=== PATIENT | male | born 1970 | race Caucasian/White ===

== ENCOUNTER 2018-07-21 13:23 | Emergency (ER) | payer OTHER ==
[~2018-07-21] VITALS: Ht 177.8 cm; Wt 129.3 kg
[~2018-07-21 13:23] MED LIST: ALBUAER3 IN
[2018-07-21 13:43] VITALS: BP 141/78
== END 2018-07-21 22:15 | disposition left against medical advice (07) ==
LOC: ER 13:36
DX: K62.89 Other specified diseases of anus and rectum (principal); Z53.21 Procedure and treatment not carried out due to patient leaving prior to being seen by health care provider

== ENCOUNTER 2018-07-22 10:23 | Inpatient (IN) | payer OTHER ==
[~2018-07-22] VITALS: Ht 177.8 cm; Wt 129.3 kg
[2018-07-22 12:08] LABS: Albumin 3.9 g/dL (3.4-5.0); Calcium 8.6 mg/dL (8.5-10.1); Hemoglobin 16.6 g/dL (13.5-17.5); Monocytes # (auto) 0.5 uL; Potassium 3.7 mmol/L (3.5-5.1); Red Cell Distribution Width 12.9 % (11.8-14.3)
[2018-07-22 12:10] LABS: Basophils # (auto) 0 uL; Basophils % (auto) 0.4 % (0.0-2.0); Eosinophils # (auto) 0.1 uL; Eosinophils % (auto) 1.8 % (0.0-7.0); Hematocrit 47.3 % (41.0-53.0); Lymphocytes # (auto) 2.9 uL; Lymphocytes % (auto) 41.9 % (10.0-50.0); Mean Corpuscular Hemoglobin 34.2 pg (28.0-32.0); Mean Corpuscular Volume 97.7 fL (80.0-100.0); Monocytes % (auto) 7.4 % (0.0-12.0); Neutrophils # (auto) 3.3 uL; Neutrophils % (auto) 48.5 % (37.0-80.0); Nucleated Red Blood Cells % 0.2 %; Platelet Count (auto) 194 10^3/uL (140-450); Red Blood Cells 4.84 10^6/uL (4.5-5.90); White Blood Cell 6.8 10^3/uL (4.4-10.8)
[2018-07-22 12:12] LABS: BUN/Creatinine Ratio 12.2; Bilirubin, Total 0.6 mg/dL (0.2-1.0); Total Protein 7.8 g/dL (6.4-8.2)
[2018-07-22] MEDS ORDERED: cefTRIAXone 1GM/50ML D5W 50 ML IV ONE (16:15)
[2018-07-22] MEDS ORDERED: VANCOMYCIN 1GM/250ML 250 ML IV ONE (16:15)
[2018-07-22] MEDS ORDERED: IPRATROPIUM BROM 0.5 MG/2.5ML INH SOL NEB PRN (18:00)
[2018-07-22] MEDS ORDERED: NITROGLYCERIN 0.4 MG SL TAB SL PRN (18:00)
[2018-07-22] MEDS ORDERED: ALPRAZolam 0.25 MG TAB PO PRN (18:00)
[2018-07-22] MEDS ORDERED: MORPHINE SULFATE 10 MG/ML INJ 1ML SDV IV PRN ×2 (18:00)
[2018-07-22] MEDS ORDERED: ONDANSETRON HCL 4 MG/2 ML VIAL IV PRN (18:00)
[2018-07-22] MEDS ORDERED: HYDROcodone-ACET 5/325MG TAB PO PRN (18:00)
[2018-07-22] MEDS ORDERED: ALBUTEROL SULF 2.5 MG/0.5ML(0.5%) NEB SOLN NEB PRN (18:00)
[2018-07-22 20:24] VITALS: BP 123/72
--- NOTE | 2018-07-22 21:05 | NUR ---
MS admit from ER TIMA HYDE admitted to tele/MS. Patient oriented to Danyelle Limon, primary RN, unit, room, bed, and unit policies regarding patient care and visiting hours. Patient weighed by bedscale and encouraged to call if they need something. All questions and concerns addressed, patient verbalized understanding. Note:
--- NOTE | 2018-07-22 22:20 | NUR ---
PATIENT SIGNED INFORMED CONSENT TO GO OUTSIDE TO SMOKE.
[2018-07-22] MEDS: DOCUSATE SOD 100 MG CAP PO SCH (23:14)
--- NOTE | 2018-07-23 00:20 | NUR ---
PATIENT WENT OUTSIDE TO SMOKE.
[2018-07-23 05:00] VITALS: BP 109/65
--- NOTE | 2018-07-23 05:47 | NUR ---
patient states that he went to restroom and there was a heavy amount of bleeding from rectum. No pain. vitals are stable.
[2018-07-23 06:57] LABS: Basophils # (auto) 0 uL; Basophils % (auto) 0.7 % (0.0-2.0); Eosinophils # (auto) 0.1 uL; Eosinophils % (auto) 1.8 % (0.0-7.0); Hematocrit 44.1 % (41.0-53.0); Hemoglobin 15.3 g/dL (13.5-17.5); Lymphocytes # (auto) 2.3 uL; Lymphocytes % (auto) 33.6 % (10.0-50.0); Mean Corpuscular Hemoglobin 34.1 pg (28.0-32.0); Mean Corpuscular Hgb Conc. 34.7 g/dL (32.0-36.0); Mean Corpuscular Volume 98.4 fL (80.0-100.0); Monocytes # (auto) 0.7 uL; Monocytes % (auto) 9.4 % (0.0-12.0); Neutrophils # (auto) 3.8 uL; Neutrophils % (auto) 54.5 % (37.0-80.0); Nucleated Red Blood Cells % 0.1 %; Platelet Count (auto) 175 10^3/uL (140-450); Red Blood Cells 4.48 10^6/uL (4.5-5.90); White Blood Cell 6.9 10^3/uL (4.4-10.8)
[2018-07-23 07:11] LABS: Calcium 8.3 mg/dL (8.5-10.1); Potassium 3.8 mmol/L (3.5-5.1)
[2018-07-23 07:16] LABS: BUN/Creatinine Ratio 11.9
[2018-07-23 08:00] VITALS: BP 118/68
[2018-07-23 09:00] VITALS: BP 118/68
[2018-07-23] MEDS: DOCUSATE SOD 100 MG CAP PO SCH (09:58)
--- NOTE | 2018-07-23 10:21 | NUR ---
RT NOTE: WENT TO PTS ROOM TO ASSESS FOR PRN BREATHING TX. PT STATED THAT HE DID NOT WANT A TX AT THIS TIME. SPO2 100% ON RA, HR 77, RR 18, BREATH SOUNDS CLEAR. PT AWARE TO CALL IF HAVING ANY SOB, WILL CONTINUE TO MONITOR PT.
[2018-07-23 13:00] VITALS: BP 144/84
[2018-07-23] MEDS ORDERED: LIDOCAINE HCL 5 % TOP OINT 35 GM PR ONE (13:30)
--- NOTE | 2018-07-23 18:01 | NUR ---
Discharge instructions given as ordered. Encourage to follow up with PMD as instructed. All questions and concerns addressed. Patient verbalized understanding. IV removed with catheter intact, pressure dressing applied. Patient ambulated to vehicle with all personal belongings, accompanied by staff and family member. No distress noted at time of departure.
== END 2018-07-23 18:01 | disposition home or self-care (01) | DRG 377 ==
LOC: ER 10:23 → EAST 17:59
PROVIDERS: ADMIT Nurse Practitioner Acute Care; ATTEND Internal Medicine
DX: K62.5 Hemorrhage of anus and rectum (principal); N17.0 Acute kidney failure with tubular necrosis; I96 Gangrene, not elsewhere classified; K64.5 Perianal venous thrombosis; E66.01 Morbid (severe) obesity due to excess calories; E78.5 Hyperlipidemia, unspecified; F17.210 Nicotine dependence, cigarettes, uncomplicated; J45.909 Unspecified asthma, uncomplicated
CPT/HCPCS: 36415; 74176; 80048; 80053; 80061; 85025; 87040; 93306; 96365; 96367; G0378; J0696